=== PATIENT | female | born 1960 | race Caucasian/White ===

== ENCOUNTER 2017-02-03 14:36 | Emergency (ER) | payer BC ==
[2017-02-03] MEDS ORDERED: SULFAMETHOXAZOLE/TRIMETHOPRIM 800-160 MG TABLET PO ONE (15:39)
[2017-02-03] MEDS ORDERED: CEPHALEXIN 500 MG CAPSULE PO ONE (15:39)
--- NOTE | 2017-02-03 15:43 | ER Document Report ---
HPI - HPI Patient complains to provider of: skin lesion Onset: Other - 2 days Onset/Duration: Worse Quality of pain: Achy Pain Level: 4 Context: Patient states she was doing yard work 3 days ago and 2 days ago noticed a rash to her right forearm and a tender red area over her left wrist. The patient states she did try to squeeze the skin lesion on the left wrist. Patient denies any fever or history of MRSA. Associated Symptoms: Other - Skin rash to right forearm, skin lesion to left wrist Exacerbated by: Movement Relieved by: Denies Similar symptoms previously: No Recently seen / treated by doctor: No - ROS ROS below otherwise negative: Yes Systems Reviewed and Negative: Yes All other systems reviewed and negative - CONSTITUTIONAL Constitutional: DENIES: Fever, Chills - NEURO Neurology: DENIES: Weakness - GASTROINTESTINAL Gastrointestinal: DENIES: Nausea - MUSCULOSKELETAL Musculoskeletal: REPORTS: Extremity pain - DERM Skin Color: Erythema Skin Problems: Rash Past Medical History - General Information source: Patient - Social History Smoking Status: Never Smoker Frequency of alcohol use: Occasional Drug Abuse: None Occupation: Housekeeping Family History: Reviewed & Not Pertinent Patient has suicidal ideation: No Renal/ Medical History: Denies: Hx Peritoneal Dialysis Musculoskeltal Medical History: Reports Other - Chronic back pain Surgical Hx: Negative Vertical Provider Document - CONSTITUTIONAL Agree With Documented VS: No Exam Limitations: No Limitations General Appearance: WD/WN, No Apparent Distress - INFECTION CONTROL TRAVEL OUTSIDE OF THE [place] IN LAST 30 DAYS: No - HEENT HEENT: Atraumatic, Normocephalic - NECK Neck: Normal Inspection - RESPIRATORY Respiratory: Breath Sounds Normal, No Respiratory Distress O2 Sat by Pulse Oximetry: 98 - CARDIOVASCULAR Cardiovascular: Regular Rhythm, No Murmur, Tachycardia - 104 apical Pulses: Normal: Radial - BACK Back: Normal Inspection - MUSCULOSKELETAL/EXTREMETIES Musculoskeletal/Extremeties: MAEW, FROM - NEURO Level of Consciousness: Awake, Alert, Appropriate Motor/Sensory: No Motor Deficit - DERM Integumentary: Warm, Dry, Rash - Erythematous macular rash to the volar aspect of right forearm. negative: Abscess Notes: Patient with erythematous area over the dorsal aspect of left wrist with a centralized black lesion, no fluctuance, no drainable abscess, full range of motion to joint, no concern for septic joint Course - Re-evaluation Re-evalutation: 10/02/17 15:41 Patient states that she only takes gabapentin, after review of patient's prescriptions, patient does have a current prescription for hydrocodone, after confronted with this information, patient did acknowledge that she does have pain medication at home. - Vital Signs Vital signs: Temp Pulse Resp BP Pulse Ox 98.5 F 116 H 16 150/101 H 98 02/03/17 14:52 02/03/17 14:52 02/03/17 14:52 02/03/17 14:52 02/03/17 14:52 Discharge - Discharge Clinical Impression: Hx of essential hypertension, Skin rash Cellulitis Qualifiers: Site of cellulitis: extremity Site of cellulitis of extremity: upper extremity Laterality: left Qualified Code(s): L03.114 - Cellulitis of left upper limb Condition: Stable Disposition: HOME, SELF-CARE Instructions: Contact Dermatitis ([facility]), Cellulitis ([facility]), Cephalexin ([facility]), Topical Steroid Cream or Ointment ([facility]), Trimethoprim-Sulfa ([facility]) Additional Instructions: Return immediately for any new or worsening symptoms Followup with your primary care provider, call tomorrow to make a followup appointment Apply warm compresses several times each day to left wrist Take the pain medication that you have at home as prescribed Prescriptions: Cephalexin Monohydrate [Keflex 500 mg Capsule] 500 mg PO Q6H 5 Days capsule Sulfamethoxazole/Trimethoprim [Bactrim Ds Tablet] 1 each PO BID #20 tablet Triamcinolone Acetonide [Aristocort 0.1% Cream] 1 applic TP TID #60 gm Forms: Elevated Blood Pressure, Return to Work Referrals: SRIRAM LARES MD [PEDIATRICS] - Follow up as needed
[2017-02-03 16:19] VITALS: BP 131/104
== END 2017-02-03 16:15 | disposition home or self-care (01) ==
LOC: ER 14:36
DX: L03.114 Cellulitis of left upper limb (principal); R21 Rash and other nonspecific skin eruption; I10 Essential (primary) hypertension; R00.0 Tachycardia, unspecified; M54.9 Dorsalgia, unspecified; G89.29 Other chronic pain; Z79.899 Other long term (current) drug therapy
CPT/HCPCS: 99283